=== PATIENT | male | born 1950 | race Hispanic/Latino ===

== ENCOUNTER → 2025-01-01 | Day surgery (SDC) | payer MEDICARE ==
[2024-12-29 09:40] LABS: BASOPHILS % 0.8 % (0.0-1.0); EOSINOPHILS % 4.8 % (0.0-6.0); LYMPHOCYTES % 31.2 % (18.0-39.1); MONOCYTES % 9.3 % (4.4-11.3); NEUTROPHILS % 53.9 % (38.7-80.0); RED CELL DISTRIBUTION WIDTH 12.8 % (11.7-14.4)
[2024-12-29 10:46] LABS: EST GLOMERULAR FILTRATION RATE 100.0 ML/MIN (>=60)
[~2025-01-01] MED LIST: DEXAMETHASONE SOD PHOS INJ 4 MG/ML SDV ONE; GLYCOPYRROLATE INJ 0.2 MG/ML VIAL ONE; LIDOCAINE HCL 2% LOCAL INJ 5 ML SDV VIAL INJ ONE; MULTI-VITAMIN1 EACH PO; ONDANSETRON HCL INJ 2MG/ML 2ML 2 MG/ML VIAL ONE; PROPOFOL IV EMULSION 10 MG/ML 20 ML VIAL ONE
[2025-01-01] MEDS: GATIFLOXACIN(OPTH) 5 ML LIQD ONE (08:17)
[2025-01-01] MEDS: PHENYLEPHRINE HCL 2 ML DROPS ONE (08:17)
[2025-01-01] MEDS: LACTATED RINGER'S 1,000 ML ONE (08:17)
[2025-01-01] MEDS: CYCLOPENTOLATE HCL 2% OPTH SOLN 2 ML BTL OP ONE (08:17)
[2025-01-01 09:52] VITALS: TEMP 97.4
[2025-01-01 10:20] VITALS: BP 133/71; PULSE 65; RESP 15; O2SAT 98
== END | disposition home or self-care (01) ==
LOC: OR 06:25
PROVIDERS: ATTEND Ophthalmology
DX: H25.12 Age-related nuclear cataract, left eye (principal); I10 Essential (primary) hypertension; Z01.810 Encounter for preprocedural cardiovascular examination; Z01.812 Encounter for preprocedural laboratory examination; Z85.038 Personal history of other malignant neoplasm of large intestine
CPT/HCPCS: 36415; 66984; 80048; 85025; 93005; J1100; J2003; J2405; J2704; J7121; V2632

== ENCOUNTER → 2025-02-12 | Day surgery (SDC) | payer MEDICARE ==
[2025-02-09 08:24] LABS: BASOPHILS % 0.6 % (0.0-1.0); EOSINOPHILS % 3.1 % (0.0-6.0); LYMPHOCYTES % 33.9 % (18.0-39.1); MONOCYTES % 10.8 % (4.4-11.3); NEUTROPHILS % 51.4 % (38.7-80.0); RED CELL DISTRIBUTION WIDTH 12.5 % (11.7-14.4)
[2025-02-09 09:06] LABS: EST GLOMERULAR FILTRATION RATE 99.0 ML/MIN (>=60)
[~2025-02-12] MED LIST changes: -DEXAMETHASONE SOD PHOS INJ 4 MG/ML SDV ONE; -GLYCOPYRROLATE INJ 0.2 MG/ML VIAL ONE; -ONDANSETRON HCL INJ 2MG/ML 2ML 2 MG/ML VIAL ONE
[2025-02-12] MEDS: PHENYLEPHRINE HCL 2 ML DROPS ONE (09:26)
[2025-02-12] MEDS: LACTATED RINGER'S 1,000 ML ONE (09:26)
[2025-02-12] MEDS: CYCLOPENTOLATE HCL 2% OPTH SOLN 2 ML BTL OP ONE (09:27)
[2025-02-12] MEDS: GATIFLOXACIN(OPTH) 5 ML LIQD ONE (09:27)
[2025-02-12 10:35] VITALS: BP 144/86; PULSE 58; RESP 16; O2SAT 99
== END | disposition home or self-care (01) ==
LOC: OR 06:47
PROVIDERS: ATTEND Ophthalmology
DX: H25.11 Age-related nuclear cataract, right eye (principal); Z01.812 Encounter for preprocedural laboratory examination; Z85.038 Personal history of other malignant neoplasm of large intestine
CPT/HCPCS: 36415; 66984; 80048; 85025; J2003; J2704; J7121; V2632